=== PATIENT | female | born 1970 | race Caucasian/White ===

== ENCOUNTER 2021-04-23 11:22 | Outpatient (CLI) | payer OTHER, SELFPAY ==
--- NOTE | 2021-04-23 11:31 | XR_ITS ---
WS: [id number] RIGHT HIP HISTORY: RIGHT HIP JOINT PAIN COMPARISON: None available. Right hip: No acute fracture or dislocation. There is severe narrowing of the joint space of the RIGH T hip. Bone upon bone with sclerosis and subchondral cystic changes on both sides of the joint. There is a large osteophyte extending lateral from the acetabulum consistent with bone remodeling. There i s partial superior migration and lateral subluxation from the joint space. Chronic deformity with rem odeling. XR/XR hip RT 2-3V wo/w pel* [id number] IMPRESSION: 1. No hip fracture. 2. Severe dysmorphic changes and degeneration at the RIGHT hip joint. 3. Superior and lateral subluxation of the femoral head with marked remodeling of the acetabulum.
== END 2021-04-23 11:23 | disposition home or self-care (01) ==
PROVIDERS: Visit Provider Family Medicine
DX: M25.551 Pain in right hip (principal)
CPT/HCPCS: 73502

== ENCOUNTER 2023-03-26 10:46 | Emergency (ER) | payer BC, SELFPAY ==
[2023-03-26 11:05] VITALS: BP 164/97; PULSE 84; RESP 17; TEMP 36.5; O2SAT 97; BMI 43.2
--- NOTE | 2023-03-26 11:13 | W.ED.EXTPRO ---
Documented by User: Raquel Rivera PA-C 03/26/23 12:46 HPI - Extremity Problem General: Chief complaint: Extremity Problem,Nontraumatic Stated complaint: hip pain Time Seen by Provider: 03/26/23 10:47 Source: patient Mode of arrival: ambulatory (using cane) Limitations: no limitations History of Present Illness: 52-year-old female presents to the ER today for worsening hip pain for the last week. Patient reports she has some chronic hip pain for which she takes Aleve at home for however over the last week has been significantly worse. She reports she was at the doctor's office yesterday and went to turn her leg to leg gave out and she fell. She reports the giving out has been worsening in the last week. Denies any trauma or injury that caused this to worsen. Patient reports she does not see Ortho. She is never had any surgeries of any kind to the hip. Last imaging was done about 2 to 3 years ago which noted severe degenerative changes and some the joint itself. At that time she was not referred to Ortho. Review of Systems General: Reports: 10 or more systems reviewed and unremarkable except in HPI and below Physical Exam Const: COMMON NORMALS: average body habitus, patient oriented x3, no limitations, healthy appearing, alert and well nourished; apparent distress (appears uncomfortable sitting or moving) Neck/C-Spine: COMMON NORMALS: full ROM Resp: COMMON NORMALS: normal respiratory effort EFFORT & INSPECTION: Yes able to speak in complete sentences Cardio: COMMON NORMALS: regular rate, regular rhythm and No murmurs present (Cardio) RATE: regular rate RHYTHM: regular rhythm : COMMON NORMALS: Yes no CVA tenderness BLADDER/KIDNEY EXAM: Yes no CVA tenderness Back/Pelvis: COMMON NORMALS: no CVA tenderness, no thoracic nor lumbar tenderness and thoraco-lumbar ROM normal Extremity: OTHER: patient has notable discomfort and decreased ROM of the R hip. Using a cane for stability. Pain with any weight bearing or flexion of the R hip. Neuro: COMMON NORMALS: patient oriented x3 SENSORIUM/ORIENTATION: Yes alert Psych: COMMON NORMALS: mental status grossly normal, Normal thought process present and cooperative THOUGHT PROCESS: Normal thought process present Skin: COMMON NORMALS: no rashes or lesions noted and no wounds GENERAL SKIN EXAM: no rashes or lesions noted Course ED course: Patient presents to the ER today for worsening right hip pain. Patient has no known injury but chronic degenerative changes which has been going on for quite some time. For the last week the pain is significantly worsened to the point patient reports her leg has given out on her several times. Yesterday this caused her to fall. She is using a cane for stability. She reports she has not seen Ortho for this. Last imaging was done about 2 years ago. She is taking Aleve with minimal improvement. We will go ahead and get new imaging at this time and likely referral to Ortho. Vital Signs: Vital signs: Vital Signs Temperature 97.7 F 03/26/23 11:05 Pulse Rate 84 03/26/23 11:05 Respiratory Rate 17 03/26/23 11:05 Blood Pressure 164/97 03/26/23 11:05 Pulse Oximetry 97 03/26/23 11:05 Oxygen Delivery Me thod Room Air 03/26/23 11:05 MDM - Extremity (Nontraumatic) Medical Decision Making Patient is noted on x-ray to have severe joint space narrowing and arthritis of the right hip however they cannot rule out avascular necrosis due to the large cyst versus degradation of the hip joint. A case management referral will be sent so that patient can get scheduled with Ortho soon as possible. I discussed findings with patient. I recommend she completely offload the joint at this time. I will give her tramadol for pain as she is in pretty severe pain. She has not seen Ortho at this time. Patient should contact the orthopedic office at [facility] on Wednesday if she has not heard from them. Patient verbalized understanding and is in agreement with this treatment plan. All radiology interpretation(s) finalized by discharge Critical Care Time Critical Care Time: Critical Care Time: No Discharge Plan Discharge Patient Disposition: Home Clinical Impression: Pain of right hip Condition: Stable Prescriptions: New tramadol 50 mg tablet 50 mg PO TID PRN (Reason: pain) Qty: 20 0RF Discharge Orders: Discharge ED (Routine); Ordered 03/26/23 Ordered By: Raquel Rivera Discharge Diet: Usual diet Discharge Activity: Limit activity as instructed and Use walker/crutches as instructed Patient Instructions: Opioid Safety, Pain Management Activity Restrictions/Additional Instructions: Take tramadol as prescribed for pain. Follow-up with orthopedics as soon as possible. If you do not hear from them by Wednesday please call them to make an appointment. I would recommend nonweightbearing on the right side to help with pain. Return to the ER with any new or worsening symptoms. Coding Level of Care Code ED Bindery Manager for Duglas Fwdelphine Documented by User: Albert Bales DO 03/26/23 16:47 HPI - Extremity Problem General: Chief complaint: Extremity Problem,Nontraumatic Stated complaint: hip pain Time Seen by Provider: 03/26/23 10:47 Course Vital Signs: Vital signs: Vital Signs Temperature 97.7 F 03/26/23 11:05 Pulse Rate 84 03/26/23 11:05 Respiratory Rate 17 03/26/23 11:05 Blood Pressure 164/97 03/26/23 11:05 Pulse Oximetry 97 03/26/23 11:05 Oxygen Delivery Me thod Room Air 03/26/23 11:05 MDM - Extremity (Nontraumatic) Medical Decision Making Patient is noted on x-ray to have severe joint space narrowing and arthritis of the right hip however they cannot rule out avascular necrosis due to the large cyst versus degradation of the hip joint. A case management referral will be sent so that patient can get scheduled with Ortho soon as possible. I discussed findings with patient. I recommend she completely offload the joint at this time. I will give her tramadol for pain as she is in pretty severe pain. She has not seen Ortho at this time. Patient should contact the orthopedic office at [facility] on Wednesday if she has not heard from them. Patient verbalized understanding and is in agreement with this treatment plan. Chart reviewed and patient discussed with midlevel. Agree with assessment and plan. Discharge Plan Discharge Patient Disposition: Home Clinical Impression: Pain of right hip Condition: Stable Prescriptions: New tramadol 50 mg tablet 50 mg PO TID PRN (Reason: pain) Qty: 20 0RF Discharge Orders: Discharge ED (Routine); Ordered 03/26/23 Ordered By: Raquel Rivera Discharge Diet: Usual diet Discharge Activity: Limit activity as instructed and Use walker/crutches as instructed Patient Instructions: Opioid Safety, Pain Management Activity Restrictions/Additional Instructions: Take tramadol as prescribed for pain. Follow-up with orthopedics as soon as possible. If you do not hear from them by Wednesday please call them to make an appointment. I would recommend nonweightbearing on the right side to help with pain. Return to the ER with any new or worsening symptoms. Coding Level of Care Code ED Bindery Manager for Duglas Henry
--- NOTE | 2023-03-26 11:17 | XR_ITS ---
WS: [id number] Right hip, 2 views, 03/26/2023 Clinical Data: worsening hip pain, chronic changes Comparison: Right hip, 04/23/2021 Findings: No fractures or dislocations are seen. There is severe narrowing of the right hip with sclerosis and flattening of the right femoral head. There are subchondral cystic changes on the acetabular and femo ral side of the right hip along with loss of the normal spherical shape of the right femoral head. Th ere is overgrowth of the right acetabular lip. Impression: Severe osteoarthritic change of the right hip Tonnis classification: grade 3: large cysts in femoral head/acetabulum or joint space obliteration/se eliseo narrowing or severe femoral head deformity vs AVN
--- NOTE | 2023-03-26 12:35 | DCPLANNER ---
Message was sent to ortho on 03/26 at [id number]
== END 2023-03-26 13:05 | disposition home or self-care (01) ==
PROVIDERS: Emergency Provider Physician Assistant
DX: M25.551 Pain in right hip (principal)
CPT/HCPCS: 73502; 99283

== ENCOUNTER → 2023-06-10 14:14 | Outpatient (BNVA) | payer BC, SELFPAY | PROVIDERS: PCP Nurse Practitioner; Visit Provider Nurse Practitioner | DX: E66.01 Morbid (severe) obesity due to excess calories (principal); Z13.6 Encounter for screening for cardiovascular disorders | CPT/HCPCS: 80053; 80061; 84443; 85025 ==

== ENCOUNTER 2023-06-25 09:28 | Outpatient (CLI) | payer BC, SELFPAY ==
--- NOTE | 2023-06-25 10:00 | MM_ITS ---
WS: [id number] VIEWS: MLO, CC, and ML views both breasts. 3D digital tomosynthesis is also included in this exam. No priors.. Findings: There was no sign of mass, architectural distortion or suspicious calcification in either breast. The re is an area of mild skin thickening seen along the anterior LEFT breast adjacent to the areolar are a. This is lateral to the nipple. There are scattered areas of fibroglandular density. Regional ultra sound of the anterior LEFT breast is recommended for further work-up. Impression: MM/[place] [id number] BI-RADS: 0-Incomplete: Need additional imaging evaluation FOLLOW-UP: See Report This mammogram was also analyzed by the Computer Aided Detection System R2 Imag e [employer] Estimator.
--- NOTE | 2023-06-25 10:30 | US_ITS ---
WS: [id number] Exam: US breast LT limited* [id number] Date/Time of Exam: 06/25/2023 10:25 AM Reason For Exam: N63.25 - Unspecified lump in the left breast, overlapping... Regional ultrasound of the anterior lateral LEFT breast is performed. At the 3 o'clock position anterior depth a 1.5 x 1.7 x 0.4 cm hypoechoic sharply circumscribed densit y is identified. This may represent a complex fluid collection. Several images indicate that this ernesto ht have a fistulous connection to the skin surface. There were no findings in this region that were s uspicious for malignancy. IMPRESSION: 1. At the 3 o'clock position in the LEFT breast anterior depth a 1.5 x 1.7 x 0.4 cm hypoechoic sharpl y circumscribed density is identified. The appearance is most suggestive of a small complex fluid col lection. Considerations would include phlegmon or small abscess. Some images suggest possible communi cation with the skin surface. BI-RADS Category 3 Repeat ultrasound in 6 months to confirm resolution is suggested
== END 2023-06-25 09:29 | disposition home or self-care (01) ==
LOC: RAD 09:29
PROVIDERS: PCP Nurse Practitioner; Visit Provider Nurse Practitioner
DX: N63.25 Unspecified lump in the left breast, overlapping quadrants (principal)
CPT/HCPCS: 76642; 77062; G0279